=== PATIENT | male | born 1965 | race Caucasian/White ===

== ENCOUNTER 2020-11-12 17:21 | Inpatient (IN) ==
--- NOTE | 2020-11-12 18:54 | ERNOTE ---
Abdominal HPI - General Chief Complaint: Abdominal Pain Time Seen by Provider: 11/12/20 18:00 Source: patient Exam Limitations: no limitations - Immun/Allergies/Home Medications Immunizatons: IMMUNIZATION HX Immunizations Up to Date Yes History of Influenza Vaccine More Information Required Hx Pneumococcal Vaccination More Information Required Allergies/Adverse Reactions: Allergies No Known Allergies Allergy (Verified 11/12/20 17:24) Home Medications: HOME MEDICATIONS atorvastatin 40 mg tablet 40 mg PO DAILY 10/19/20 [Last Taken Unknown] fenofibrate nanocrystallized 145 mg tablet 145 mg PO DAILY #90 tab 10/30/20 [Last Taken Unknown] lisinopril 20 mg tablet 20 mg PO DAILY #90 tab 10/30/20 [Last Taken Unknown] Aspirin 325 mg PO BID 11/12/20 [Last Taken Unknown] Psyllium Seed [Metamucil] 425 gm PO DAILY 11/12/20 [Last Taken Unknown] - History of Present Illness Narrative: Patient is coming to the ER for abdominal pain and distention as well as left leg swelling. He had a left hip replacement on November 05 in [place], went home the same day. He started to have increasing abdominal distention, nausea and difficulty urinating. He was admitted to the [facility] on November 07 for 2 days for an ileus, had abdominal CT. With bowel rest and IV fluids his symptoms improved, and on the day of discharge he was able to tolerate liquids and small amounts of food. His abdomen continues to be increasingly distended, he has been tolerating fluids only, has increasing pain with trying to take solids. He has small amounts of stool today, pain is mild at rest. He also has had increasing swelling in his left leg. He was discharged after the surgery on aspirin, thinks that while in [facility] he might have received Lovenox. He states that preop he had EKG changes (TWI) and had stress test done for pre op clearance Timing: getting worse Quality: mild Modifying Factors - (Improves): Present: rest Modifying Factors - (Worsens): Present: eating. Absent: breathing, movement Associated Symptoms: Present: shortness of breath. Absent: diarrhea-gross blood, fever/chills, heartburn, vomiting Prior Abdominal Problems: Present: none Prior Treatment: Present: recently seen. Absent: currently on antibiotics Review of Systems - Review of Systems Constitutional: Present: recent illness. Absent: fever ENT: Absent: nose congestion Respiratory: Present: shortness of breath - with exertion Cardiology: Absent: chest pain Gastrointestinal/Abdominal: Present: See HPI Genitourinary: Absent: frequency, dysuria Musculoskeletal: Present: other - leg swelling. Absent: back pain Neurological: Absent: headache Medical History (Last Updated 11/12/20 @ 18:54 by Starr Teixeira MD) Right hip pain (Acute) mild osteoarthritis and labral tear GERD (gastroesophageal reflux disease) (Chronic) Gout (Chronic) Hyperlipidemia (Chronic) Hypertension (Chronic) Sleep apnea Surgical History: Surgical History (Last Reviewed 11/12/20 @ 18:54 by Starr Teixeira MD) History of hip surgery left 11/05 H/O colonoscopy [facility]-possible hyperplastic polypoid change in cecum simply destroyed in place. Recheck 10 yrs. H/O eye surgery laser eye surgery [facility] 2004 History of ear, nose, and throat (ENT) surgery pollyps removed from vocal cords early Family History: Family History (Last Reviewed 11/13/20 @ 07:36 by Rohan Dove MD) Father , lung Cancer Mother Cancer jaw Alzheimers disease Social History: (Last Reviewed 11/13/20 @ 07:36 by Rohan Dove MD) Social History: Marital status: household members: spouse number of children: 2 current occupational status: employed current occupation: nurse Highest level of school completed/degree received: Associate degree: occupat Service: Yes branch: [employer] Tobacco: Smoking Status: Never smoker Tobacco: How many years used: 20 how long ago did patient quit smoking: chewed from 1977 to 1997 Smokeless tobacco user: chewing tobacco Alcohol: alcohol intake: current Alcohol type: beer alcohol intake frequency: 0-2 drinks per day details: couple beers to relax Substance Use: substance use type: does not use Dietary Habits: well-balanced diet: about half the time caffeine: Yes Type: carbonated beverages Exercise: Physical activity type: walking Jia/Denominational: jia/christian: Hindu Physical Exam - Physical Exam General Appearance: Present: wd/wn, alert, no apparent distress, obese Head Exam: Present: normal inspection Ears, Nose, Throat: Present: normal pharynx Respiratory: Present: no respiratory distress, normal breath sounds, no accessory muscle use, lungs clear Cardiovascular/Chest: Present: regular rate, rhythm, no murmur Gastrointestinal/Abdominal: Present: tenderness - diffuse, abnormal bowel sounds - decreased, distended, other - tympanic. Absent: guarding, rebound Extremity Exam: Present: extremity edema - left leg extending over whole leg Neurological Exam: Present: alert, oriented, normal mood/affect, no motor/sensory deficits Skin Exam: Present: normal color, warm/dry Progress - Results and Orders Patient's Lab Results:: I have reviewed the patient's lab results. - Vital Signs Patient's Vital Signs:: I have reviewed the patient's vital signs. Vital Signs: Vital Signs 11/12/20 17:22 11/12/20 17:57 11/12/20 18:13 Temperature 36.0 C Pulse Rate 112 H 106 H 108 H Respiratory Rate 16 18 Blood Pressure 109/72 139/97 H O2 Sat by Pulse Oximetry 96 94 11/12/20 18:36 Temperature Pulse Rate 102 H Respiratory Rate 24 H Blood Pressure 164/84 H O2 Sat by Pulse Oximetry 95 - EKG EKG #1 EKG: NSR - sinustachycardia, nonspecific ST T wave changes, other - TWI EKG read: Interp. by me - X-Ray X-Ray #1 X-Ray: abdomen - severe ileus, Interpretation: Reviewed by me - Progress/Reassessment Chief Complaint: Abdominal Pain Progress Note-Subjective: 11/12/20 20:06 reviewed, records including CT abdomen (done without IV or oral contrast) discussed with Dr Swain, he agrees that there is no benefit from repeat CT consider using dulcolax sup and suprep 11/12/20 20:30 discussed test results with patient and , agrees to admission 11/12/20 20:[address] Saeed, borisay to admit for observation for illeus Departure Clinical Impression: Ileus S/P hip replacement Qualifiers: Laterality: left Qualified Code(s): Z96.642 - Presence of left artificial hip j oint - Departure Disposition: Still a patient Condition: Stable
[2020-11-12 18:56] LABS: Hemoglobin 11.9 gm/dL (13.5-18.0); Mean Cell Volume 95.9 fl (78-100); Mean Corpuscular Hemoglobin 30.8 pg (27-31); Mean Corpuscular Hgb Conc 32.2 g/dl (32-36); Mean Platelet Volume 8.8 fl (8-11.3); Neutrophil # 7.7 K/mm3 (1.3-6.0); Platelet Count 355 K/mm3 (150-450); Red Blood Count 3.86 M/mm3 (4.7-6.0); Red Cell Distribution Width 13.8 % (11.5-14.0); White Blood Count 10.1 K/mm3 (4.0-10.5)
[2020-11-12 19:09] LABS: Albumin * 2.8 gm/dl (3.4-5.0); Anion Gap 11.2 mmol/L (6.8-13.8); BUN/Creatinine Ratio 22.5 (9.0-21.6); Bilirubin, Total 0.4 mg/dL (0.0-1.1); Calcium * 9.4 mg/dL (7.9-10.9); Carbon Dioxide 27.2 mmol/L (24-32.6); Potassium 3.4 mmol/L (3.4-4.6); Total Protein 6.6 gm/dL (6.2-8.2)
[2020-11-12] MEDS ORDERED: BISACODYL 10 MG SUPP.RECT RC ONE ×2 (20:48→23:30)
[2020-11-12] MEDS ORDERED: SODIUM, POTASSIUM,MAG SULFATES 1 KIT KIT PO ONE ×2 (20:49→23:30)
[2020-11-12] MEDS: NORMAL SALINE 1,000 ML IV PRN (23:36)
[2020-11-13] MEDS: NORMAL SALINE 1,000 ML IV PRN ×4 (03:43→23:13)
[2020-11-13] MEDS ORDERED: IBUPROFEN 800 MG TABLET PO PRN (06:47)
[2020-11-13] MEDS ORDERED: ACETAMINOPHEN 500 MG TABLET PO PRN (06:47)
[2020-11-13 06:56] LABS: Hematocrit 33.9 % (42.0-52.0); Mean Cell Volume 97.1 fl (78-100); Mean Corpuscular Hemoglobin 31.5 pg (27-31); Mean Corpuscular Hgb Conc 32.4 g/dl (32-36); Mean Platelet Volume 8.6 fl (8-11.3); Neutrophil # 9.5 K/mm3 (1.3-6.0); Neutrophil % 78.6 % (42-75.0); Platelet Count 338 K/mm3 (150-450); Red Blood Count 3.49 M/mm3 (4.7-6.0)
[2020-11-13 07:13] LABS: Albumin * 2.7 gm/dl (3.4-5.0); Anion Gap 12.3 mmol/L (6.8-13.8); BUN/Creatinine Ratio 21.1 (9.0-21.6); Bilirubin, Total 0.5 mg/dL (0.0-1.1); Ca. Corrected For Albumin 9.6 mg/dL (8.4-10.2); Calcium * 8.9 mg/dL (7.9-10.9); Carbon Dioxide 27.3 mmol/L (24-32.6); Potassium 3.6 mmol/L (3.4-4.6); Total Protein 6.3 gm/dL (6.2-8.2)
[2020-11-13] MEDS ORDERED: MAGNESIUM CITRATE 300 ML BTL PO ONE (07:20)
--- NOTE | 2020-11-13 07:43 | HP ---
Chief Complaint - Chief Complaint Date of Service: 11/13/20 Time of Service: 07:00 Chief Complaint: Abdominal distension History of Present Illness: Patient came to the [facility] ER yesterday for abdominal pain and distention as well as left leg swelling. He had a left hip replacement on November 05 in [place], went home the same day. He started to have increasing abdominal distention, nausea and difficulty urinating. He was admitted to the [facility] on November 07 for 2 days for an ileus, had abdominal CT. With bowel rest and IV fluids his symptoms improved, and on the day of discharge he was able to tolerate liquids and small amounts of food. Since then his abdomen continues to be increasingly distended. He has been tolerating fluids only, has increasing pain with trying to take solids and increased feeling of distension with oral fluids. He is now on IV fluids. He had small amounts of stool yesterday, pain is mild at rest. Only flatus here. He also has had increasing swelling in his left leg. He was discharged after the surgery on aspirin, thinks that while in [facility] he might have received Lovenox, we will hold aspirin for now and start Lovenox. Preop cardiology and pulmonology evaluations said that surgery could proceed as planned. He remains quite distended but not nauseated. Will give oral fluids, no food, IV fluids, laxatives and frequent ambulation. If he does not improve or worsens, he needs an NG tube. This is most likely ileus and our treatment will be conservative. This may take more than a couple of days to resolve. His Lipase was slightly elevated on admission, but I doubt this is really pertinent to his current situation. We will, however, repeat the test. We will follow blood count and chemistries also. Medical History (Last Reviewed 11/13/20 @ 07:36 by Rohan Dove MD) Right hip pain (Acute) mild osteoarthritis and labral tear GERD (gastroesophageal reflux disease) (Chronic) Gout (Chronic) Hyperlipidemia (Chronic) Hypertension (Chronic) Sleep apnea Surgical History: Surgical History (Last Reviewed 11/13/20 @ 07:36 by Rohan Dove MD) History of hip surgery left 11/05 H/O colonoscopy [facility]-possible hyperplastic polypoid change in cecum simply destroyed in place. Recheck 10 yrs. H/O eye surgery laser eye surgery [facility] 2004 History of ear, nose, and throat (ENT) surgery pollyps removed from vocal cords early Family History: Family History (Last Reviewed 11/13/20 @ 07:36 by Rohan Dove MD) Father , lung Cancer Mother Cancer jaw Alzheimers disease Social History: (Last Reviewed 11/13/20 @ 07:36 by Rohan Dove MD) Social History: Marital status: household members: spouse number of children: 2 current occupational status: employed current occupation: nurse Highest level of school completed/degree received: Associate degree: occupat Service: Yes branch: [employer] Tobacco: Smoking Status: Never smoker Tobacco: How many years used: 20 how long ago did patient quit smoking: chewed from 1977 to 1997 Smokeless tobacco user: chewing tobacco Alcohol: alcohol intake: current Alcohol type: beer alcohol intake frequency: 0-2 drinks per day details: couple beers to relax Substance Use: substance use type: does not use Dietary Habits: well-balanced diet: about half the time caffeine: Yes Type: carbonated beverages Exercise: Physical activity type: walking Jia/Methodist: jia/faith: Tenriism Review Of Systems (GEN) - Review of Systems Generalized/Overall Review: Present: No Symptoms Reported EENTM: Present: No Symptoms Reported Respiratory: Present: Other - slight king Cardiac: Present: Edema - left leg s/p left hip surgery. venous ultrasound in our ER yesterday showed no clot. Abdominal: Present: Other - abdominal distension. discomfort, not pain. flatus, no BM since admission. says distension is same as yesterday. we will avoid opiates.. Absent: Nausea, Vomiting Genitourinary: Present: No Symptoms Reported Musculoskeletal: Present: No Symptoms Reported Neurological: Present: No Symptoms Reported Skin: Present: No Symptoms Reported Endocrine: Present: No Symptoms Reported Misc: All systems neg except as marked Immunizations: IMMUNIZATION HX Immunizations Up to Date Yes History of Influenza Vaccine More Information Required Hx Pneumococcal Vaccination More Information Required Allergies/Adverse Reactions: Allergies Allergy/AdvReac Type Severity Reaction Status Date / Time No Known Allergies Allergy Verified 11/12/20 17:24 Home Medications: HOME MEDICATIONS atorvastatin 40 mg tablet 40 mg PO DAILY 10/19/20 [Last Taken Unknown] fenofibrate nanocrystallized 145 mg tablet 145 mg PO DAILY #90 tab 10/30/20 [Last Taken Unknown] lisinopril 20 mg tablet 20 mg PO DAILY #90 tab 10/30/20 [Last Taken Unknown] Aspirin 325 mg PO BID 11/12/20 [Last Taken Unknown] Psyllium Seed [Metamucil] 425 gm PO DAILY 11/12/20 [Last Taken Unknown] Exam - Exam Vital Signs: Vital Signs - Last Taken Temp 36.5 C 11/13/20 06:39 Pulse 86 11/13/20 06:39 Resp 20 11/13/20 06:39 BP 122/81 11/13/20 06:39 Pulse Ox 97 11/13/20 06:39 Constitutional: Present: Alert, Oriented x3, Cooperative, Well developed, No distress, Obese ENT Exam: Present: normal ENT inspection, hearing grossly normal Eye Exam: bilateral eye: normal inspection, PERRL, EOMI Neck: Present: normal inspection. Absent: lymphadenopathy (R), lymphadenopathy (L), thyromegaly Back Exam: Present: normal inspection Breasts: Present: Other - male Respiratory: Present: lungs clear, no respiratory distress Cardiovascular/Chest: Present: normal peripheral pulses, regular rate, rhythm, no gallop, no JVD, no murmur Peripheral Pulses: carotid (R): 1+, carotid (L): 1+ Abdomen: Present: nontender, no hepatospenomegaly, no masses, obese, other - slow bowel sounds. abdoment tightly distended /Rectal: Present: Exam deferred Extremity: Present: normal capillary refill, pedal edema - mainly in left leg and foot Skin Exam: Present: normal color, warm/dry, no cyanosis Lymphatic: Present: no adenopathy Neurologic: Present: normal mood/affect Appearance: Present: appropriate appearance, appropriate insight, neat, no memory impairment Eye contact: Present: cooperative, good eye contact, normal speech Thoughts: Present: normal thought pattern Diagnostic Studies: Abnormal Lab Results 11/12/20 11/12/20 11/12/20 Range/Units 18:50 18:50 18:50 WBC (4.0-10.5) K/mm3 RBC 3.86 L (4.7-6.0) M/mm3 Hgb 11.9 L (13.5-18.0) gm/dL Hct 37.0 L (42.0-52.0) % MCH (27-31) pg Immature Gran % (Auto) 0.60 H (0.001-0.429) % Immature Gran # (Auto) 0.06 H (0.000-0.0310) K/mm3 Neutrophils % 76.0 H (42-75.0) % Lymphocytes % 9.9 L (20-51) % Monocytes % 11.6 H (0.0-9) % Neutrophils # 7.7 H (1.3-6.0) K/mm3 Lymphocytes # 1.00 L (1.5-3.5) k/mm3 Monocytes # 1.2 H (0.0-1.0) k/mm3 D-Dimer 3.75 H (0.19-0.49) ug/mL BUN 31 H (6-23) mg/dL Est GFR (Non-Af Amer) 57 L D (60-130) mL/min BUN/Creatinine Ratio 22.5 H (9.0-21.6) Random Glucose (70-110) mg/dL Albumin 2.8 L (3.4-5.0) gm/dl Lipase 747 H (73-393) U/L 11/13/20 11/13/20 Range/Units 06:43 06:58 WBC 12.0 H (4.0-10.5) K/mm3 RBC 3.49 L (4.7-6.0) M/mm3 Hgb 11.0 L (13.5-18.0) gm/dL Hct 33.9 L (42.0-52.0) % MCH 31.5 H (27-31) pg Immature Gran % (Auto) 0.60 H (0.001-0.429) % Immature Gran # (Auto) 0.07 H (0.000-0.0310) K/mm3 Neutrophils % 78.6 H (42-75.0) % Lymphocytes % 8.7 L (20-51) % Monocytes % 10.2 H (0.0-9) % Neutrophils # 9.5 H (1.3-6.0) K/mm3 Lymphocytes # 1.05 L (1.5-3.5) k/mm3 Monocytes # 1.2 H (0.0-1.0) k/mm3 D-Dimer (0.19-0.49) ug/mL BUN 27 H (6-23) mg/dL Est GFR (Non-Af Amer) (60-130) mL/min BUN/Creatinine Ratio (9.0-21.6) Random Glucose 117 H (70-110) mg/dL Albumin 2.7 L (3.4-5.0) gm/dl Lipase 552 H (73-393) U/L Laboratory Results WBC 12.0 K/mm3 (4.0-10.5) H 11/13/20 06:43 RBC 3.49 M/mm3 (4.7-6.0) L 11/13/20 06:43 Hgb 11.0 gm/dL (13.5-18.0) L 11/13/20 06:43 Hct 33.9 % (42.0-52.0) L 11/13/20 06:43 MCV 97.1 fl (78-100) 11/13/20 06:43 MCH 31.5 pg (27-31) H 11/13/20 06:43 MCHC 32.4 g/dl (32-36) 11/13/20 06:43 RDW 14.0 % (11.5-14.0) 11/13/20 06:43 Plt Count 338 K/mm3 (150-450) 11/13/20 06:43 MPV 8.6 fl (8-11.3) 11/13/20 06:43 Immature Gran % (Auto) 0.60 % (0.001-0.429) H 11/13/20 06:43 Immature Gran # (Auto) 0.07 K/mm3 (0.000-0.0310) H 11/13/20 06:43 Neutrophils % 78.6 % (42-75.0) H 11/13/20 06:43 Lymphocytes % 8.7 % (20-51) L 11/13/20 06:43 Monocytes % 10.2 % (0.0-9) H 11/13/20 06:43 Eosinophils % 1.6 % (0.0-3.0) 11/13/20 06:43 Basophils % 0.3 % (0.0-1.0) 11/13/20 06:43 Nucleated RBC % 0.0 k/mm3 (0-1) 11/13/20 06:43 Neutrophils # 9.5 K/mm3 (1.3-6.0) H 11/13/20 06:43 Lymphocytes # 1.05 k/mm3 (1.5-3.5) L 11/13/20 06:43 Monocytes # 1.2 k/mm3 (0.0-1.0) H 11/13/20 06:43 Eosinophils # 0.2 k/mm3 (0.0-0.7) 11/13/20 06:43 Absolute Basophils 0.0 k/mm3 (0.0-0.1) 11/13/20 06:43 D-Dimer 3.75 ug/mL (0.19-0.49) H 11/12/20 18:50 Sodium 137 mmol/L (132-142) 11/12/20 18:50 Plasma Sodium 137 mmol/L (130-142) 11/12/20 18:50 Potassium 3.4 mmol/L (3.4-4.6) 11/12/20 18:50 Chloride 102 mmol/L (97-106) 11/12/20 18:50 Carbon Dioxide 27.2 mmol/L (24-32.6) 11/12/20 18:50 Anion Gap 11.2 mmol/L (6.8-13.8) 11/12/20 18:50 BUN 27 mg/dL (6-23) H 11/13/20 06:58 Creatinine 1.38 mg/dL (0.4-1.4) 11/12/20 18:50 Est GFR (Non-Af Amer) 57 mL/min (60-130) L D 11/12/20 18:50 BUN/Creatinine Ratio 22.5 (9.0-21.6) H 11/12/20 18:50 Random Glucose 117 mg/dL (70-110) H 11/13/20 06:58 Calcium 9.4 mg/dL (7.9-10.9) 11/12/20 18:50 Calcium Adj for Albumin 10.0 mg/dL (8.4-10.2) 11/12/20 18:50 Total Bilirubin 0.4 mg/dL (0.0-1.1) 11/12/20 18:50 AST 19 U/L (0-48) 11/12/20 18:50 ALT 35 U/L (19-67) 11/12/20 18:50 Alkaline Phosphatase 73 U/L (50-170) 11/12/20 18:50 Total Protein 6.6 gm/dL (6.2-8.2) 11/12/20 18:50 Albumin 2.7 gm/dl (3.4-5.0) L 11/13/20 06:58 Lipase 552 U/L (73-393) H 11/13/20 06:58 SARS-CoV-2 (PCR) Not detected (NotDetected) 11/12/20 20:59 Assessment/Plan - Assessment/Plan (1) Ileus Assessment: plan will be conservative. may need an NG tube sometime today. he is reluctant to have one. Problem: Acute (2) S/P hip replacement Problem: Acute Qualifiers: Laterality: left Qualified Code(s): Z96.642 - Presence of left artificial hip joint (3) Elevated lipase Assessment: will recheck today. Problem: Acute (4) Chewing tobacco nicotine dependence Problem: Acute
[2020-11-13] MEDS ORDERED: MAGNESIUM CITRATE 300 ML BTL ONE (08:37)
[2020-11-13] MEDS: ENOXAPARIN SODIUM 40 MG/0.4 ML SYRG SC SCH (08:40)
[2020-11-13] MEDS: BISACODYL 5 MG TABLET.DR PO SCH (08:40)
[2020-11-13] MEDS ORDERED: NEOSTIGMINE METHYLSULFATE 1 MG/ML VIAL IV ONE ×2 (16:34→17:15)
[2020-11-14 06:16] LABS: Hematocrit 34.2 % (42.0-52.0); Hemoglobin 10.8 gm/dL (13.5-18.0); Mean Cell Volume 97.7 fl (78-100); Mean Corpuscular Hemoglobin 30.9 pg (27-31); Mean Corpuscular Hgb Conc 31.6 g/dl (32-36); Mean Platelet Volume 9.2 fl (8-11.3); Neutrophil # 8.7 K/mm3 (1.3-6.0); Neutrophil % 78.5 % (42-75.0); Platelet Count 376 K/mm3 (150-450); White Blood Count 11.1 K/mm3 (4.0-10.5)
[2020-11-14 06:31] LABS: Albumin * 2.7 gm/dl (3.4-5.0); Anion Gap 11.8 mmol/L (6.8-13.8); BUN/Creatinine Ratio 21.2 (9.0-21.6); Bilirubin, Total 0.5 mg/dL (0.0-1.1); Ca. Corrected For Albumin 9.4 mg/dL (8.4-10.2); Calcium * 8.7 mg/dL (7.9-10.9); Carbon Dioxide 26.7 mmol/L (24-32.6); Potassium 3.5 mmol/L (3.4-4.6); Total Protein 6.3 gm/dL (6.2-8.2)
[2020-11-14] MEDS ORDERED: NEOSTIGMINE METHYLSULFATE 1 MG/ML VIAL IV ONE ×2 (06:38→07:30)
--- NOTE | 2020-11-14 07:08 | PN ---
Subjective - Date and Time Seen Date: 11/14/20 Time: 06:20 Subjective Narrative: Patient came to the [facility] ER two days ago for abdominal pain and distention as well as left leg swelling. He had a left hip replacement on November 05 in [place], went home the same day. He started to have increasing abdominal distention, nausea and difficulty urinating following discharge. He was admitted to the [facility] on November 07 for 2 days for an ileus, had abdominal CT with no evidence of obstruction. With bowel rest and IV fluids his symptoms improved but didn't resolve completely, and on the day of discharge he was able to tolerate liquids and small amounts of food. After returning home his abdomen became increasingly distended. He was tolerating fluids only, and had increasing pain with trying to take solids and an increased feeling of distension with oral fluids. His symptoms became severe enough that he was admitted here through the ER and started on IV fluids. He had small amounts of stool the day before yesterday, passed gas only yesterday, and complained of uncomfortable worsening abdominal distention over this time. Plain XRAY in our ER was consistent with ileus. He also had increasing swelling in his left leg. He was discharged after s shasha on aspirin, thinks that while in [facility] he might have received Lovenox which we will restart for his hospital stay here. Ultrasound found no left leg DVT in [facility]. He passed brown liquid with chunks a few hours ago following IV neostigmine last evening. His abdomen feels a little less distended to him this morning. He is not nauseated and has not vomited. On exam yesterday his abdomen was very tightly distended. This morning it is a tiny but perceptible bit less tight. We have been giving oral fluids, no food, IV fluids, laxatives and frequent ambulation. Yesterday afternoon because there was no improvement we tried to place an NG tube, which we were unable to pass. His nurse contacted our surgeon, Dr. Swain, who recommended no NG tube, but consider a trial of neostigmine and possibly a decompressing colonoscopy depending on course. This may still take more than another couple of days to resolve. He is only slightly better this morning, and I am loathe to send him home too soon as, among other things, this is his second hospital admission for the same problem. His Lipase was slightly elevated on admission, but improved though not normal this morning. We will, however, repeat the test tomorrow. His wbc count was a little elevated yesterday, but less so today. His chemistries are normal (low albumin noted). We will follow blood count. Objective - Review of Systems Generalized/Overall Review: Reports: No Symptoms Reported EENTM: Reports: No Symptoms Reported Respiratory: Reports: No Symptoms Reported Cardiac: Reports: No Symptoms Reported Abdominal: Reports: Other - abdominal distention and discomfort Genitourinary Symptoms: Reports: No Symptoms Reported Musculoskeletal Complaints: Reports: Other - post op left hip pain Neurological: Reports: No Symptoms Reported Skin: Reports: No Symptoms Reported Endocrine: Reports: No Symptoms Reported Misc: All systems neg except as marked - Vitals Vitals: Last Vital Signs Temp 36.4 C 11/14/20 06:23 Pulse 91 11/14/20 06:23 Resp 18 11/14/20 06:23 BP 114/73 11/14/20 06:23 Pulse Ox 95 11/14/20 06:23 - Abnormal Lab Findings Abnormal Lab Findings: Abnormal Lab Results 11/13/20 11/13/20 11/14/20 Range/Units 06:43 06:58 05:40 WBC 12.0 H 11.1 H (4.0-10.5) K/mm3 RBC 3.49 L 3.50 L (4.7-6.0) M/mm3 Hgb 11.0 L 10.8 L (13.5-18.0) gm/dL Hct 33.9 L 34.2 L (42.0-52.0) % MCH 31.5 H (27-31) pg MCHC 31.6 L (32-36) g/dl Immature Gran % (Auto) 0.60 H 0.50 H (0.001-0.429) % Immature Gran # (Auto) 0.07 H 0.06 H (0.000-0.0310) K/mm3 Neutrophils % 78.6 H 78.5 H (42-75.0) % Lymphocytes % 8.7 L 9.0 L (20-51) % Monocytes % 10.2 H 10.0 H (0.0-9) % Neutrophils # 9.5 H 8.7 H (1.3-6.0) K/mm3 Lymphocytes # 1.05 L 1.00 L (1.5-3.5) k/mm3 Monocytes # 1.2 H 1.1 H (0.0-1.0) k/mm3 BUN 27 H (6-23) mg/dL Random Glucose 117 H (70-110) mg/dL Albumin 2.7 L (3.4-5.0) gm/dl Lipase 552 H (73-393) U/L 11/14/20 Range/Units 05:40 WBC (4.0-10.5) K/mm3 RBC (4.7-6.0) M/mm3 Hgb (13.5-18.0) gm/dL Hct (42.0-52.0) % MCH (27-31) pg MCHC (32-36) g/dl Immature Gran % (Auto) (0.001-0.429) % Immature Gran # (Auto) (0.000-0.0310) K/mm3 Neutrophils % (42-75.0) % Lymphocytes % (20-51) % Monocytes % (0.0-9) % Neutrophils # (1.3-6.0) K/mm3 Lymphocytes # (1.5-3.5) k/mm3 Monocytes # (0.0-1.0) k/mm3 BUN 24 H (6-23) mg/dL Random Glucose 114 H (70-110) mg/dL Albumin 2.7 L (3.4-5.0) gm/dl Lipase (73-393) U/L - Exam Constitutional: Present: Alert, Oriented x3, Cooperative, Well developed, No distress, Obese ENT Exam: Present: normal ENT inspection, hearing grossly normal Neck: Present: normal inspection. Absent: lymphadenopathy (R), lymphadenopathy (L), thyromegaly Breasts: Present: Other - male Respiratory: Present: lungs clear, no respiratory distress Cardiovascular/Chest: Present: regular rate, rhythm, no gallop, no JVD, no murmur, edema - both legs but particularly his left leg, operated side. Abdomen: Present: Normal bowel sounds, nontender, no hepatospenomegaly, no masses, obese, other - tightly distended but a little better than yesterday /Rectal: Present: Exam deferred Extremity: Present: normal capillary refill, pedal edema Skin Exam: Present: normal color, warm/dry, no cyanosis Lymphatic: Present: no adenopathy Appearance: Present: appropriate appearance, appropriate insight, neat, no memory impairment Eye contact: Present: cooperative, good eye contact, normal speech Thoughts: Present: normal thought pattern Assessment/Plan Plan Narrative: repeat neostigmine iv today. continue conservative care including iv hydration. depending on course, consider consult for decompressive colonoscopy (plus/minus rectal tube). - Problems/Diagnosis (1) Ileus Problem: Acute Narrative: recheck flat plate today (2) S/P hip replacement Problem: Acute Qualifiers: Laterality: left Qualified Code(s): Z96.642 - Presence of left artificial hip joint (3) Elevated lipase Problem: Acute Narrative: improving. will check again tomorrow. (4) Chewing tobacco nicotine dependence Problem: Acute
[2020-11-14] MEDS: ENOXAPARIN SODIUM 40 MG/0.4 ML SYRG SC SCH (07:22)
[2020-11-14] MEDS: NORMAL SALINE 1,000 ML IV PRN ×3 (07:25→23:22)
[2020-11-14] MEDS: BISACODYL 5 MG TABLET.DR PO SCH (07:59)
[2020-11-14] MEDS ORDERED: DIATRIZOATE MEGLUMINE, SODIUM 30 ML BTL PO ONE (10:11)
[2020-11-14] MEDS ORDERED: SODIUM, POTASSIUM,MAG SULFATES 1 KIT KIT PO ONE (10:20)
[2020-11-14] MEDS: VITAMIN B COMP W-C 1 TAB TABLET PO SCH (15:24)
[2020-11-15 06:32] LABS: Hematocrit 31.3 % (42.0-52.0); Hemoglobin 9.9 gm/dL (13.5-18.0); Mean Cell Volume 97.8 fl (78-100); Mean Corpuscular Hemoglobin 30.9 pg (27-31); Mean Corpuscular Hgb Conc 31.6 g/dl (32-36); Mean Platelet Volume 9.6 fl (8-11.3); Neutrophil # 5.8 K/mm3 (1.3-6.0); Neutrophil % 73.8 % (42-75.0); Platelet Count 330 K/mm3 (150-450); Red Cell Distribution Width 13.6 % (11.5-14.0); White Blood Count 7.9 K/mm3 (4.0-10.5)
[2020-11-15] MEDS ORDERED: NEOSTIGMINE METHYLSULFATE 1 MG/ML VIAL IV ONE (06:35)
[2020-11-15 06:51] LABS: Anion Gap 10.4 mmol/L (6.8-13.8); BUN/Creatinine Ratio 16.8 (9.0-21.6); Calcium * 8.9 mg/dL (7.9-10.9); Estimated Creat Clear 87.1; Potassium 3.4 mmol/L (3.4-4.6)
--- NOTE | 2020-11-15 07:17 | PN ---
Subjective - Date and Time Seen Date: 11/15/20 Time: 06:15 Subjective Narrative: Patient came to the [facility] ER 3 days ago for abdominal pain and distention as well as left leg swelling. He had a left hip replacement on November 05 in [place], went home the same day. He started to have increasing abdominal distention, nausea and difficulty urinating following discharge. He was admitted to the [facility] on November 07 for 2 days for an ileus, had abdominal CT with no evidence of obstruction. With bowel rest and IV fluids his symptoms improved but didn't resolve completely, and on the day of discharge he was able to tolerate liquids and small amounts of food. After returning home his abdomen became increasingly distended. He was tolerating fluids only, and had increasing pain with trying to take solids and an increased feeling of distension with oral fluids. His symptoms became severe enough that he was admitted here through the ER and started on IV fluids. He feels about the same this morning, no pain, no nausea, but distended abdomen. On the positive side, he is passing watery stools, brown in color. Not particularly hungry. I repeated his abdominal CT scan which was essentially unchanged from before. Of note is a slightly large liver and spleen, of no relevance to his immediate problems. We will address that following discharge and recovery. He has swelling in both legs, worse in the left. He was discharged after surgery on aspirin, thinks that while in [facility] he might have received We stopped aspirin and for this hospitalization are using Lovenox. Ultrasound found no left leg DVT in [place]. He passed brown liquid with chunks a few hours ago following IV neostigmine last evening. His abdomen feels about the same as yesterday, but probably less distended than 2 days ago. We have been giving oral fluids, no food, IV fluids, laxatives, IV neostigmine and frequent ambulation. I spoke with Dr. Swain yesterday afternoon. He has seen the original plain and CT xrays of the abdomen. He thinks at the present time we are doing what needs to be done. It appears this will take at least another day or two before he is ready to go home. I think if there is no change tomorrow I may talk with a collection coordinator at the [facility] by phone tomorrow. CBC this morning is normal. Chemistries are normal except for ongoing low albumin. We will add ensure clear to his treatment and B vitamins with C. His wanted to talk with me about him yesterday. He signed a release for me to do that. She saw me in my office. We spent 20 minutes talking. I explained what has been going on including back to when he first had surgery. I explained what we are doing for him, how is responding, and what our plan is. I explained my conversation with Dr. Swain. I answered he questions to her satisfaction. She provided some additional historical information. Objective - Review of Systems Generalized/Overall Review: Reports: No Symptoms Reported EENTM: Reports: No Symptoms Reported Respiratory: Reports: No Symptoms Reported Cardiac: Reports: Edema - not cardiac related. chronic venous insufficiency, worse on the left side due to his recent hip surgery. Abdominal: Reports: Other - abdominal distension. now frequent brown colored watery stools.. Denies: Nausea Genitourinary Symptoms: Reports: No Symptoms Reported Neurological: Reports: No Symptoms Reported Skin: Reports: No Symptoms Reported Endocrine: Reports: No Symptoms Reported Misc: All systems neg except as marked - Vitals Vitals: Last Vital Signs Temp 36.6 C 11/15/20 02:00 Pulse 63 11/15/20 02:07 Resp 18 11/15/20 02:00 BP 113/81 11/15/20 02:00 Pulse Ox 97 11/15/20 02:00 - Abnormal Lab Findings Abnormal Lab Findings: Abnormal Lab Results 11/15/20 Range/Units 05:44 RBC 3.20 L (4.7-6.0) M/mm3 Hgb 9.9 L (13.5-18.0) gm/dL Hct 31.3 L (42.0-52.0) % MCHC 31.6 L (32-36) g/dl Lymphocytes % 12.8 L (20-51) % Monocytes % 10.0 H (0.0-9) % Lymphocytes # 1.01 L (1.5-3.5) k/mm3 - Exam Constitutional: Present: Alert, Oriented x3, Cooperative, Well developed, No distress, Obese ENT Exam: Present: normal ENT inspection, hearing grossly normal Neck: Present: normal inspection. Absent: lymphadenopathy (R), lymphadenopathy (L), thyromegaly Breasts: Present: Other - male Respiratory: Present: lungs clear, no respiratory distress Cardiovascular/Chest: Present: regular rate, rhythm, no gallop, no JVD, no murmur Abdomen: Present: Normal bowel sounds, nontender, no hepatospenomegaly - on exam. CT shows mild hepatosplenomegaly., no masses, obese, distended /Rectal: Present: Exam deferred Extremity: Present: normal capillary refill, lower extremity edema Skin Exam: Present: normal color, warm/dry, no cyanosis Lymphatic: Present: no adenopathy Neurologic: Present: normal mood/affect Appearance: Present: appropriate appearance, appropriate insight, neat, no memory impairment Eye contact: Present: cooperative, good eye contact, normal speech Thoughts: Present: normal thought pattern Assessment/Plan - Problems/Diagnosis (1) Ileus Problem: Acute Narrative: conservative treatment. neostigmine. if no improvement at all by tomorrow, I may speak with GI at the [facility]. add vitamins and ensure clear. hepatosplenomegaly is mild, and will be addressed when he is recovered from this current illness. (2) S/P hip replacement Problem: Acute Qualifiers: Laterality: left Qualified Code(s): Z96.642 - Presence of left artificial hip joint (3) Elevated lipase Problem: Resolved (4) Chewing tobacco nicotine dependence Problem: Acute
[2020-11-15] MEDS: NORMAL SALINE 1,000 ML IV PRN ×2 (07:27→15:28)
[2020-11-15] MEDS: ENOXAPARIN SODIUM 40 MG/0.4 ML SYRG SC SCH (07:37)
[2020-11-15] MEDS: VITAMIN B COMP W-C 1 TAB TABLET PO SCH (08:33)
[2020-11-15] MEDS: BISACODYL 5 MG TABLET.DR PO SCH (08:34)
[2020-11-16] MEDS ORDERED: NEOSTIGMINE METHYLSULFATE 1 MG/ML VIAL IV ONE (06:46)
--- NOTE | 2020-11-16 07:00 | PN ---
Subjective - Date and Time Seen Date: 11/16/20 Time: 06:20 Subjective Narrative: Patient came to the [facility] ER 4 days ago for abdominal pain and distention as well as left leg swelling. He had a left hip replacement on November 05 in [place], went home the same day. He started to have increasing abdominal distention, nausea and difficulty urinating following discharge. He was admitted to the [facility] on November 07 for 2 days for an ileus, had abdominal CT with no evidence of obstruction. With bowel rest and IV fluids his symptoms improved but didn't resolve completely, and on the day of discharge he was able to tolerate liquids and small amounts of food. After returning home his abdomen became increasingly distended. He was tolerating fluids only, and had increasing pain with trying to take solids and an increased feeling of distension with oral fluids. His symptoms became severe enough that he was admitted here through the ER and started on IV fluids. We've treated him conservatively with clear liquids, IV fluids, ambulation and daily IV neostigmine. He is now having bowel movements about every three hours, liquid, brown, with small amounts of solid material. He notices an increase for the first time of borborygmi. He has no pain or nausea. He perceives his abdomen may be a little less tight. He has ongoing bilateral leg edema, worse on the left, his operated leg. We repeated his CT while in the hospital here which showed nothing new and was about the same as his admission abdominal CT. His fluid balance has been strongly in the positive, so yesterday we decreased his IV rate to 50 ml/hr. This morning we will stop the fluids. On his exam this morning, his abdomen is definitely less tight. We will repeat IV neostigmine and try a low fat diet. If he is doing well after lunch, we will send him home. If he is not doing well I will talk with a [facility] superintendent pier on their consult phone line. Objective - Review of Systems Generalized/Overall Review: Reports: No Symptoms Reported EENTM: Reports: No Symptoms Reported Respiratory: Reports: Other - reports he had been having upward pressure from his abdomen on his lungs, which is gone this morning. Cardiac: Denies: Chest Pain, Palpitations Abdominal: Reports: Other. Denies: Nausea, Abdominal Pain Genitourinary Symptoms: Reports: No Symptoms Reported Musculoskeletal Complaints: Reports: No Symptoms Reported Neurological: Reports: No Symptoms Reported Skin: Reports: No Symptoms Reported Endocrine: Reports: No Symptoms Reported Misc: All systems neg except as marked - Vitals Vitals: Last Vital Signs Temp 36.9 C 11/16/20 06:17 Pulse 73 11/16/20 06:17 Resp 16 11/16/20 06:17 BP 112/73 11/16/20 06:17 Pulse Ox 97 11/16/20 06:17 - Exam Constitutional: Present: Alert, Oriented x3, Cooperative, Well developed, No distress, Obese ENT Exam: Present: normal ENT inspection, hearing grossly normal Neck: Present: normal inspection. Absent: lymphadenopathy (R), lymphadenopathy (L), thyromegaly Breasts: Present: Other - male Respiratory: Present: lungs clear, no respiratory distress Cardiovascular/Chest: Present: regular rate, rhythm, no gallop, no JVD, no murmur Abdomen: Present: Normal bowel sounds, nontender, no hepatospenomegaly, no masses, obese, distended - less than yesterday /Rectal: Present: Exam deferred Extremity: Present: normal capillary refill, lower extremity edema Skin Exam: Present: normal color, warm/dry, no cyanosis Lymphatic: Present: no adenopathy Neurologic: Present: normal mood/affect Appearance: Present: appropriate appearance, appropriate insight, neat, no memory impairment Eye contact: Present: cooperative, good eye contact, normal speech Thoughts: Present: normal thought pattern Assessment/Plan - Problems/Diagnosis (1) Ileus Problem: Acute Narrative: improved this morning. advance diet. stop IV fluids. neostigmine IV. if better after lunch, home. if not, I will consult [facility] GI on their consult line. (2) S/P hip replacement Problem: Acute Qualifiers: Laterality: left Qualified Code(s): Z96.642 - Presence of left artificial hip joint (3) Elevated lipase Problem: Resolved (4) Chewing tobacco nicotine dependence Problem: Chronic Qualifiers: Substance use status: uncomplicated Qualified Code(s): F17.220 - Nicotine dependence, chewing tobacco, uncomplicated
[2020-11-16] MEDS: ENOXAPARIN SODIUM 40 MG/0.4 ML SYRG SC SCH (07:03)
[2020-11-16] MEDS: BISACODYL 5 MG TABLET.DR PO SCH (10:03)
[2020-11-16] MEDS: VITAMIN B COMP W-C 1 TAB TABLET PO SCH (10:03)
--- NOTE | 2020-11-16 12:30 | DS ---
(1) Ileus Problem: Acute (2) S/P hip replacement Problem: Acute Qualifiers: Laterality: left Qualified Code(s): Z96.642 - Presence of left artificial hip joint (3) Elevated lipase Problem: Resolved (4) Chewing tobacco nicotine dependence Problem: Chronic Qualifiers: Substance use status: uncomplicated Qualified Code(s): F17.220 - Nicotine dependence, chewing tobacco, uncomplicated (5) Hepatosplenomegaly Diagnosis(s): noted incidentally on CT scan of abdomen. Problem: Chronic Date of Discharge:: 11/16/20 Hospital Course: Patient came to the [facility] ER 4 days ago for abdominal pain and distention as well as left leg swelling. He had a left hip replacement on November 05 in [place], went home the same day. He started to have increasing abdominal distention, nausea and difficulty urinating following discharge. He was admitted to the [facility] on November 07 for 2 days for an ileus, had abdominal CT with no evidence of obstruction. With bowel rest and IV fluids his symptoms improved but didn't resolve completely, and on the day of discharge he was able to tolerate liquids and small amounts of food. After returning home his abdomen became increasingly distended. He was tolerating fluids only, and had increasing pain with trying to take solids and an increased feeling of distension with oral fluids. His symptoms became severe enough that he was admitted here through the ER and started on IV fluids. We've treated him conservatively with clear liquids, IV fluids, ambulation and daily IV neostigmine. On his exam this morning, his abdomen was definitely less tight. He said until this morning he had upward pressure against his lungs which was relieved for the first time this morning. Early this morning he has noted more gurgling in his abdomen than he has done thus far. We gave him a non fat diet this morning and this noon which has not worsened his condition. He is having frequent brown watery bowel movements. His leg edema is about the same. We will send him home and follow closely as an outpatient. Yesterday I had a 20 minute separate visit with his discussing his condition and answering all her questions. Procedures Performed: none Results and Findings: Lab Pending Results 11/12/20 18:50: WBC 10.1, RBC 3.86 L, Hgb 11.9 L, Hct 37.0 L, MCV 95.9, MCH 30.8, MCHC 32.2, RDW 13.8, Plt Count 355, MPV 8.8, Immature Gran % (Auto) 0.60 H, Immature Gran # (Auto) 0.06 H, Neutrophils % 76.0 H, Lymphocytes % 9.9 L, Monocytes % 11.6 H, Eosinophils % 1.6, Basophils % 0.3, Nucleated RBC % 0.0, Neutrophils # 7.7 H, Lymphocytes # 1.00 L, Monocytes # 1.2 H, Eosinophils # 0.2, Absolute Basophils 0.0 11/12/20 18:50: Sodium 137, Plasma Sodium 137, Potassium 3.4, Chloride 102, Carbon Dioxide 27.2, Anion Gap 11.2, BUN 31 H, Creatinine 1.38, Est GFR (Non-Af Amer) 57 L D, BUN/Creatinine Ratio 22.5 H, Random Glucose 110, Calcium 9.4, Calcium Adj for Albumin 10.0, Total Bilirubin 0.4, AST 19, ALT 35, Alkaline Phosphatase 73, Total Protein 6.6, Albumin 2.8 L, Lipase 747 H 11/12/20 18:50: D-Dimer 3.75 H 11/12/20 20:59: SARS-CoV-2 (PCR) Not detected 11/13/20 06:43: WBC 12.0 H, RBC 3.49 L, Hgb 11.0 L, Hct 33.9 L, MCV 97.1, MCH 31.5 H, MCHC 32.4, RDW 14.0, Plt Count 338, MPV 8.6, Immature Gran % (Auto) 0.60 H, Immature Gran # (Auto) 0.07 H, Neutrophils % 78.6 H, Lymphocytes % 8.7 L, Monocytes % 10.2 H, Eosinophils % 1.6, Basophils % 0.3, Nucleated RBC % 0.0, N eutrophils # 9.5 H, Lymphocytes # 1.05 L, Monocytes # 1.2 H, Eosinophils # 0.2, Absolute Basophils 0.0 11/13/20 06:58: Sodium 140, Plasma Sodium 140, Potassium 3.6, Chloride 104, Carbon Dioxide 27.3, Anion Gap 12.3, BUN 27 H, Creatinine 1.28, Est GFR (Non-Af Amer) 62, BUN/Creatinine Ratio 21.1, Random Glucose 117 H, Calcium 8.9, Calcium Adj for Albumin 9.6, Total Bilirubin 0.5, AST 15, ALT 29, Alkaline Phosphatase 65, Total Protein 6.3, Albumin 2.7 L, Lipase 552 H 11/14/20 05:40: WBC 11.1 H, RBC 3.50 L, Hgb 10.8 L, Hct 34.2 L, MCV 97.7, MCH 30.9, MCHC 31.6 L, RDW 14.0, Plt Count 376, MPV 9.2, Immature Gran % (Auto) 0.50 H, Immature Gran # (Auto) 0.06 H, Neutrophils % 78.5 H, Lymphocytes % 9.0 L, Monocytes % 10.0 H, Eosinophils % 1.6, Basophils % 0.4, Nucleated RBC % 0.0, Neutrophils # 8.7 H, Lymphocytes # 1.00 L, Monocytes # 1.1 H, Eosinophils # 0.2, Absolute Basophils 0.0 11/14/20 05:40: Sodium 141, Plasma Sodium 141, Potassium 3.5, Chloride 106, Carbon Dioxide 26.7, Anion Gap 11.8, BUN 24 H, Creatinine 1.13, Est GFR (Non-Af Amer) 71, BUN/Creatinine Ratio 21.2, Random Glucose 114 H, Calcium 8.7, Calcium Adj for Albumin 9.4, Total Bilirubin 0.5, AST 17, ALT 28, Alkaline Phosphatase 68, Total Protein 6.3, Albumin 2.7 L 11/15/20 05:44: WBC 7.9 D, RBC 3.20 L, Hgb 9.9 L, Hct 31.3 L, MCV 97.8, MCH 30.9, MCHC 31.6 L, RDW 13.6, Plt Count 330, MPV 9.6, Immature Gran % (Auto) 0.40, Immature Gran # (Auto) 0.03, Neutrophils % 73.8, Lymphocytes % 12.8 L, Monocytes % 10.0 H, Eosinophils % 2.5, Basophils % 0.5, Nucleated RBC % 0.0, Neutrophils # 5.8, Lymphocytes # 1.01 L, Monocytes # 0.8, Eosinophils # 0.2, Absolute Basophils 0.0 11/15/20 05:44: Sodium 137, Plasma Sodium 137, Potassium 3.4, Chloride 104, Carbon Dioxide 26.0, Anion Gap 10.4, BUN 18, Creatinine 1.07, Est GFR (Non-Af Amer) 76, BUN/Creatinine Ratio 16.8, Random Glucose 100, Calcium 8.9, Lipase 222 Discharge Location: Home Disposition: Home self-care Condition: Stable Discharge Activity: Activity as tolerated - with walker Discharge Diet: Low fat/chol - strictly avoid caffeine, alcohol and salt Referrals: Rohan Dove MD [Primary Care Provider] - Additional Patient Instructions (free text): call as needed for problems or questions. it is important to walk a lot. follow up with me in the office in 3 days. Prescriptions (Any new or edited meds): Polyethylene Glycol 3350 [Miralax] 17 gm PO BID #1 bottle Transmission Status: Pending to [facility] Vitamin B Comp W-C [Vitabee W/C] 1 tab PO DAILY #30 tab Transmission Status: Pending to [facility] Complete Home Medications List: Complete Home Medication List: atorvastatin 40 mg tablet 40 mg PO DAILY 10/19/20 lisinopril 20 mg tablet 20 mg PO DAILY #90 tab 10/30/20 Aspirin 325 mg PO BID 11/12/20 Acetaminophen [Tylenol] 750 mg PO QID PRN tablet 11/16/20 Polyethylene Glycol 3350 [Miralax] 17 gm PO BID #1 bottle 11/16/20 Vitamin B Comp W-C [Vitabee W/C] 1 tab PO DAILY #30 tab 11/16/20 Amb Orders for Discharge: Basic Metabolic Panel Time Frame: 3 Days, Facility: [facility], Location: Laboratory Forms: Patient Portal Registration
[2020-11-16 15:45] VITALS: BP 111/79
== END 2020-11-16 16:05 | disposition home or self-care (01) | DRG 390 ==
LOC: MS 17:21 → ER 17:21 → MS 22:30
PROVIDERS: ADMIT Family Medicine; ATTEND Allergy & Immunology
DX: Z96.642 Presence of left artificial hip joint; K56.7 Ileus, unspecified; R60.0 Localized edema; F17.220 Nicotine dependence, chewing tobacco, uncomplicated